=== PATIENT | female | born 1995 | race Hispanic/Latino ===

== ENCOUNTER 2018-06-10 11:19 | Emergency (ER) | payer OTHER ==
[~2018-06-10] VITALS: Ht 160 cm; Wt 56.7 kg
[2018-06-10] MEDS ORDERED: CYCLOBENZAPRINE HCL 10 MG TAB PO ONE (11:45)
[2018-06-10] MEDS ORDERED: DEXAMETHASONE SOD PHOS 10 MG/1 ML VIAL IM ONE (11:45)
[2018-06-10] MEDS ORDERED: KETOROLAC TROMETHAMINE 60 MG/2 ML VIAL IM ONE (11:45)
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
--- NOTE | 2018-06-10 13:45 | Diagnostic Imaging Report ---
Exam: Right shoulder 2 views History: Pain Comparison: None. Findings: No fracture or malalignment. Joint spaces preserved. No abnormal soft tissue calcification or soft tissue defect. Impression: No acute osseous abnormality Signed by: Dr. Ravindra Cook M.D. on 06/10/2018 1:42 PM
[2018-06-10 14:06] VITALS: BP 111/70
== END 2018-06-10 14:30 | disposition home or self-care (01) ==
LOC: ER 11:19
DX: M54.2 Cervicalgia (principal); S16.1XXA Strain of muscle, fascia and tendon at neck level, initial encounter; M25.511 Pain in right shoulder; M62.838 Other muscle spasm; M62.830 Muscle spasm of back; V43.52XA Car driver injured in collision with other type car in traffic accident, initial encounter; Y92.488 Other paved roadways as the place of occurrence of the external cause
CPT/HCPCS: 71046; 72050; 73030; 81025; 99283; J1100; J1885

== ENCOUNTER 2019-09-22 09:30 | Emergency (ER) | payer OTHER ==
[~2019-09-22] VITALS: Ht 160 cm; Wt 56.7 kg
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
--- NOTE | 2019-09-22 10:14 | Emergency Department Note ---
History of Present Illnes History of Present Illness Chief Complaint: Extremity Trauma/Pain History of Present Illness This is a 24 year old female arrives to the ED with left ankle pain after sustaining a mechanical eversion injury just prior to arrival. . Historian: Patient Arrival Mode: Car Technical Sales Specialist Required: No Onset (how long ago): hour(s) Radiation: Reports non-radiation Severity: mild Onset quality: sudden Duration (how long): hour(s) Timing of current episode: constant Progression: unchanged Chronicity: new Relieving factors: none Past Medical/Family History Physician Review I have reviewed the patient's past medical and family history. Any updates have been documented here. Past Medical History Recent Fever: No Clinical Suspicion of Infectio: No New/Unexplained Change in Ment: No Past Medical History: None Past Surgical History: None Social History Physically hurt or threatened: No Review of Systems Review of Systems Constitutional: Reports no symptoms EENTM: Reports no symptoms Cardiovascular: Reports no symptoms Respiratory: Reports no symptoms Gastrointestinal: Reports no symptoms Genitourinary: Reports no symptoms Musculoskeletal: Reports as per HPI, Reports joint pain, Reports joint swelling Integumentary: Reports no symptoms Neurological: Reports no symptoms Psychological: Reports no symptoms Endocrine: Reports no symptoms Hematological/Lymphatic: Reports no symptoms Physical Exam Related Data Allergies: Coded Allergies: No Known Allergies (Unverified , 06/10/18) Triage Vital Signs Vital Signs Date Time Temp Pulse Resp B/P (MAP) Pulse Ox O2 Delivery O2 Flow Rate FiO2 09/22/19 09:45 98.5 91 16 121/72 100 Room Air Vital signs reviewed: Yes Physical Exam CONSTITUTIONAL Constitutional: Present well-developed, Present well-nourished HENT HENT: Present normocephalic, Present atraumatic, Present oropharynx clear/moist, Present nose normal HENT L/R: Present left ext ear normal, Present right ext ear normal EYES Eyes: Reports PERRL, Reports conjunctivae normal NECK Neck: Present ROM normal PULMONARY Pulmonary: Present effort normal, Present breath sounds normal CARDIOVASCULAR Cardiovascular: Present regular rhythm, Present heart sounds normal, Present capillary refill normal, Present normal rate GASTROINTESTINAL Abdominal: Present soft, Present nontender, Present bowel sounds normal GENITOURINARY Genitourinary: Present exam deferred SKIN Skin: Present warm, Present dry MUSCULOSKELETAL Musculoskeletal: Present tenderness, Present swelling, Present other (tenderness noted over lateral malleolus of left ankle) NEUROLOGICAL Neurological: Present alert, Present oriented x 3, Present no gross motor or sensory deficits PSYCHOLOGICAL Psychological: Present mood/affect normal, Present judgement normal Results Imaging Imaging results reviewed: Yes Impressions IMPRESSION: Soft tissue swelling centered at the lateral ankle without underlying acute osseous injury. Signed by: Jimenez Rodney MD on 09/22/2019 10:25 AM Assessment & Plan Medical Decision Making MDM 24-year-old well-appearing female arrived to the ED after sustaining an eversion injury. Patient's x-rays unremarkable, she was placed in a also boot and instructed to elevate foot and follow up with a orthopedist/drama teacher or with further workup. Assessment & Plan Final Impression: (1) Ankle sprain Depart Disposition: HOME, SELF-CARE Last Vital Signs Date Time Temp Pulse Resp B/P (MAP) Pulse Ox O2 Delivery O2 Flow Rate FiO2 09/22/19 09:45 98.5 91 16 121/72 100 Room Air Home Meds Active Scripts Naproxen (NAPROXEN) 250 Mg Tablet, 250 MG PO BID PRN for Mild Pain (1-3) or Fever>100.8, #14 TAB Prov:TATA CASTRO, 09/22/19 Tramadol Hcl (ULTRAM) 50 Mg Tablet, 50 MG PO Q6HR PRN for Mild Pain (1-3) or Fever>100.8, #12 TAB Prov:TATA CASTRO, 09/22/19 Medications in the ED Acetaminophen/ Hydrocodone Bitart 1 ea ONCE PRN PO MODERATE PAIN (4-6); Start 09/22/19 at 10:15; Stop 09/29/19 at 10:14; Status UNV TATA CASTRO DO Sep 22, 2019 10:14
[2019-09-22] MEDS ORDERED: HYDROCODONE/APAP 7.5MG-325MG 1 EA TAB PO PRN (10:15)
--- NOTE | 2019-09-22 10:29 | Diagnostic Imaging Report ---
EXAMINATION: ANKLE 3+ VIEWS LEFT INDICATION: Ankle pain COMPARISON: None FINDINGS: AP, oblique and lateral images of the ankle demonstrate no acute fracture or dislocation. The ankle mortise is intact and symmetric. No substantial degenerative change. Circumstantial ankle soft tissue swelling, more pronounced laterally. IMPRESSION: Soft tissue swelling centered at the lateral ankle without underlying acute osseous injury. Signed by: Jimenez Rodney MD on 09/22/2019 10:25 AM
[2019-09-22] MEDS ORDERED: NAPROXEN250 MG PO (10:46)
[2019-09-22] MEDS ORDERED: ULTRAM50 MG PO (10:46)
[2019-09-22 11:07] VITALS: BP 107/74
== END 2019-09-22 11:20 | disposition home or self-care (01) ==
LOC: ER 09:40
DX: M25.572 Pain in left ankle and joints of left foot (principal); S93.402A Sprain of unspecified ligament of left ankle, initial encounter; W01.0XXA Fall on same level from slipping, tripping and stumbling without subsequent striking against object, initial encounter; Y93.01 Activity, walking, marching and hiking; Y92.008 Other place in unspecified non-institutional (private) residence as the place of occurrence of the external cause
CPT/HCPCS: 99283